=== PATIENT | male | born 1960 | race Caucasian/White ===

== ENCOUNTER 2024-06-22 03:04 | Emergency (ER) | payer OTHER, SELFPAY ==
[2024-06-22 03:05] VITALS: BP 167/105; PULSE 61; RESP 14; TEMP 36.2; O2SAT 97; BMI 35.2
--- NOTE | 2024-06-22 03:19 | CT_ITS ---
INDICATION: flank pain EXAMINATION: CT ABDOMEN AND PELVIS WITHOUT CONTRAST - CT Abdomen And Pelvis W/O Contrast Injection TECHNIQUE: Helically acquired images were obtained of the abdomen and pelvis without oral or IV contrast. A radiation dose optimization technique was used for this scan. IV Contrast dosage and agent: None. Oral contrast: None. COMPARISON: None. FINDINGS: LOWER CHEST: Lung bases are clear. No cardiomegaly or pericardial effusion. LIVER: Homogeneous. No focal mass. GALLBLADDER AND BILIARY TREE: No calcified gallstones. No gallbladder distension or wall edema. No intra- or extrahepatic biliary ductal dilation. PANCREAS: No focal cystic or solid mass. SPLEEN: Normal size without focal cystic or solid mass. ADRENAL GLANDS: No nodules. KIDNEYS AND URETERS: 2 mm right ureterovesical junction stone, axial image 140, with minimal hydronephrosis and moderate right perinephric inflammation. Additional punctate renal stones are present bilaterally. No significant left perinephric inflammation. Normal left ureter. Normal bilateral renal cortical appearance. PERITONEUM: No ascites or free air. No other fluid collection. BOWEL: Small hiatal hernia. No acute gastric finding. No small bowel distention or focal wall thickening. Normal appendix. Scattered moderate colonic stool. Scattered colonic diverticulosis without evidence of diverticulitis. . LYMPH NODES: No enlarged mesenteric or retroperitoneal lymph nodes. VESSELS: Aorta is non-dilated. URINARY BLADDER: Unremarkable. REPRODUCTIVE ORGANS: Large prostate 7 cm transverse. ABDOMINAL WALL: No discrete abdominal or pelvic wall hernia. BONES: No lytic or blastic abnormality. L4-5 facet arthropathy with degenerative grade 1 anterolisthesis and mild associated neural foraminal narrowing. L5-S1 small posterior disc protrusion with mild spinal canal and neural foraminal narrowing. CT/Abdomen/Pelvis without Cont IMPRESSION: 2 mm right ureterovesical junction stone with mild hydronephrosis and perinephric inflammation. Additional bilateral punctate nonobstructive stones. Moderate colonic stool. Large prostate. Electronically Signed: Anirudh Thomason MD at 5:01 EDT ,
--- NOTE | 2024-06-22 03:25 | EX.ED.DYSGE1 ---
HPI History of Present Illness Chief Complaint: Flank Pain Informant: patient and spouse/S.O. Narrative Narrative: Patient is a 64-year-old male with no reported significant past medical history. He states he went to bed normally last night and then awoke around 1 in the morning with a right-sided abdominal/flank pain. Patient states that there has been no recent trauma or excessive activity. He denies any dysuria. He states that the pain does not seem to improve or worsen if he changes position. He reports that he has been trying [id number] medications for the last few hours without any symptom improvement and secondary to this comes in for evaluation. [facility] Medical History no medical history Home Medications ?Medication ?Instructions ?Recorded ?Last Taken ?Type NK 06/22/24 Unknown History ketorolac 10 mg tablet 10 mg PO 4X/DAY PRN pain 5 days 06/22/24 Unknown Rx #20 tabs ondansetron 4 mg disintegrating 4 mg PO TID PRN nausea and 06/22/24 Unknown Rx tablet vomiting #21 tabs oxycodone-acetaminophen 5 mg-325 1 tab PO Q6H PRN pain 3 days #12 06/22/24 Unknown Rx mg tablet (Percocet) tabs tamsulosin 0.4 mg capsule (Flomax) 0.4 mg PO DAILY 14 days #14 caps 06/22/24 Unknown Rx Allergy/AdvReac Type Severity Reaction Status Date / Time No Known Allergies Allergy Verified 06/22/24 03:10 Social History Smoking Status: Never smoker [facility] ED Constitutional Constitutional ED: Denies chills or fever(s) ENT ENT ED: Denies sore throat Cardiovascular Cardiovascular: Denies chest pain Respiratory/Chest Respiratory/Chest: Denies cough or dyspnea Gastrointestinal Gastrointestinal: Reports abdominal pain; Denies diarrhea, nausea or vomiting Genitourinary Genitourinary ED: Denies dysuria, hematuria or urinary frequency Musculoskeletal Musculoskeletal: Reports back pain and other Details: Positive right-sided flank pain ; Denies myalgias Integumentary Denies Abrasions or rash Neurologic Neurologic: Denies headache(s) Hematologic/Lymphatic Hematologic/Lymphatic: Denies easy bleeding or easy bruising EXAM Physical Exam Const Vital Signs: 06/22/24 03:05 06/22/24 03:05 06/22/24 04:49 Temperature 97.2 F L Temperature Source Temporal Pulse Rate 61 59 L Respiratory Rate 14 16 Blood Pressure 167/105 H 139/87 H Blood Pressure Mean 125 104 Pulse Ox 97 97 Oxygen Delivery Method Room Air Room Air Positive well nourished and well developed General Appearance ED: well developed; Negative for pallor HEENT HEENT Narrative: Normocephalic atraumatic Eyes PERRL and EOMs intact bilaterally General Eye ED: Negative for scleral icterus Neck supple Chest Wall palpation of chest normal Resp normal respiratory effort and clear to auscultation bilaterally Cardio regular rate and regular rhythm Rate: other Other Details: Heart is regular rate and rhythm without murmurs rubs or gallops Radial and carotid pulses equal and symmetric GI non-distended and no masses GI Narrative: Abdomen is soft and nondistended with normal active bowel sounds. Patient has pain on palpation along the right upper mid and lower abdomen without voluntary guarding or rigidity. No pulsatile mass or fluid wave. Negative Pastor sign Auscultation: normoactive bowel sounds Palpation: soft Back/Spine Back/Spine Narrative: Positive right CVA pain noted Extremity normal to inspection Neuro oriented x3, CN's II-XII intact bilaterally and no sensory deficits noted Sensorium / Orientation: alert Motor Exam: strength 5/5 throughout Psych mental status grossly normal Skin no rashes or lesions noted and no wounds Skin Narrative: No overlying soft tissue skin changes to suggest trauma or infection General Skin Exam: Negative for jaundice or pallor MDM MDM MDM Narrative Medical decision making narrative: Patient arrived to ER hypertensive otherwise with stable vitals. He reported sudden onset of right-sided flank pain wrapping around to the abdomen and denied any recent trauma or excessive activity. Differential diagnosis is for UTI versus pyelonephritis versus kidney stone versus biliary colic or acute cholecystitis or atypical pancreatitis. Basic labs were obtained as kidney stone is the most likely cause of his symptoms based on his history and exam. Patient did not have acute kidney injury or urosepsis finding. CT scan confirmed a 2 mm stone on the right in the distal UVJ region which is consistent with the symptoms and exam. After IV fluids and Toradol patient had resolution of pain and his blood pressure improved. Therefore at this time with resolution of pain and workup showing a kidney stone but without signs of acute kidney injury or urosepsis there is no need to keep him in the hospital and he is otherwise safe for discharge with symptomatic care History & Record Review Discussion w/independent historian: Patient and Significant other Lab Data Attestation: I reviewed the patient's lab results. Labs: Laboratory Results - last 24 hr 06/22/24 06/22/24 03:16 03:30 WBC 4.7 RBC 5.03 Hgb 15.2 Hct 45.0 MCV 89.5 MCH 30.2 MCHC 33.8 RDW Std Deviation 39.8 RDW Coeff of Leslie 12.2 Plt Count 218 MPV 8.8 Immature Gran % (Auto) 0.400 Neut % (Auto) 56.7 Lymph % (Auto) 29.2 Leon % (Auto) 9.9 Eos % (Auto) 3.2 Baso % (Auto) 0.6 Absolute Neuts (auto) 2.6 Absolute Lymphs (auto) 1.36 Nucleated RBC % 0 Sodium 140 Potassium 4.1 Chloride 110 H Carbon Dioxide 25.0 Anion Gap 5 BUN 21 H Creatinine 1.18 Estim Creat Clear Calc 83.49 Est GFR (MDRD) Af Amer 80 Est GFR (MDRD) Non-Af 67 BUN/Creatinine Ratio 17.8 Glucose 127 H Calcium 8.9 Urine Color Yellow Urine Clarity Clear Urine pH 6.0 Ur Specific [place] 1.020 Urine Protein 15 H Urine Glucose (UA) 50 H Urine Ketones Negative Urine Occult Blood Negative Urine Nitrite Negative Urine Bilirubin Negative Urine Urobilinogen Normal Ur Leukocyte Esterase Negative Urine RBC 0 SEEN Urine WBC 0 SEEN Ur Squamous Epith Cells 0-5 SEEN Urine Bacteria 0 SEEN Urine Mucus 0 SEEN Radiography Diagnostic Testing: Clinical Impression(s) from Imaging Studies Abdomen/Pelvis CT 06/22/24 03:19 IMPRESSION: 2 mm right ureterovesical junction stone with mild hydronephrosis and perinephric inflammation. Additional bilateral punctate nonobstructive stones. Moderate colonic stool. Large prostate. Electronically Signed: Anirudh Thomason MD at 5:01 EDT , Discharge Plan Triage Chief Complaint: Flank Pain ED Provider: Rashaad Montalvo Dx/Rx/DC Orders Clinical Impression: Kidney stone, Renal colic Instructions: Understanding Kidney Stones, ED Kidney Stone with Pain Prescriptions: New ketorolac 10 mg tablet 10 mg PO 4X/DAY PRN (Reason: pain) 5 Days Qty: 20 0RF oxycodone-acetaminophen [Percocet] 5-325 mg tablet 1 tab PO Q6H PRN (Reason: pain) 3 Days Qty: 12 0RF ondansetron 4 mg tablet,disintegrating 4 mg PO TID PRN (Reason: nausea and vomiting) Qty: 21 0RF tamsulosin [Flomax] 0.4 mg capsule 0.4 mg PO DAILY 14 Days Qty: 14 0RF No Action NK Primary Care Provider: Care Physician,No Primary Referrals: Emigdio Pires MD [Med Staff - Active Staff] - NOT,DEFINED [Non-Staff] - Activity Restrictions/Additional Instructions: Please keep yourself well-hydrated and stay active to help pass your kidney stone. Return to the ER if you develop a fever over 100.4 or your pain is not controlled with the prescribed medications. Otherwise you may follow-up with urology to discuss further treatment options if you do not spontaneously passed the stone Print Language: Tunisian Disposition Disposition: Home, Self Care
[2024-06-22] MEDS: Ketorolac 30 MG/ML Syringe IV (03:28)
[2024-06-22] MEDS: 0.9% Normal Saline (1000mL) 1,000 ML 999 ML IV (03:28)
[2024-06-22 03:35] LABS: Absolute Lymphocyte Count 1.36 X10^3/uL (0.83-4.51); Absolute Neutrophil Count 2.6 X10^3/uL (2.0-7.7); Basophil# 0.03 X10^3/uL; Basophil% 0.6 % (0-1); Eosinophil# 0.15 X10^3/uL; Eosinophils% 3.2 % (0-5); Hemoglobin 15.2 g/dL (13.0-16.5); Lymphocyte # 1.36 X10^3/ul (0.83-4.51); Lymphocyte % 29.2 % (19-41); Mean Corp Hgb Conc 33.8 g/dL (32-36); Mean Corpuscular Hgb 30.2 pg (27.0-32.0); Mean Corpuscular Volume 89.5 fL (80-94); Mean Platelet Vol. 8.8 fl (6.2-12.0); Monocyte# 0.46 X10^3/uL; Monocyte% 9.9 % (0-10); NRBC Flagged by Analyzer 0 % (0-5); Neutrophil # 2.64 X10^3/uL (2.7-7.7); Neutrophil % 56.7 % (47-70); Platelet Count 218 K/mm3 (150-450); RBC Distribution Width CV 12.2 % (11.6-14.6); RBC Distribution Width SD 39.8 fl (35.1-43.9); Red Blood Count 5.03 M/mm3 (4.6-6.2); White Blood Count 4.7 K/mm3 (4.4-11.0)
[2024-06-22 03:41] LABS: Bacteria 0 SEEN /hpf (None Seen); Mucous, Urine 0 SEEN /hpf (<or=2+); Red Blood Cells-Urine 0 SEEN /hpf (0-5); White Blood Cells 0 SEEN /hpf (0-5)
[2024-06-22 03:43] LABS: Glucose, Dipstick 50 mg/dl (Normal); Ketone-Dipstick Negative (Negative); Leukocyte Esterase-Dipstick Negative /ul (Negative); Nitrite-Dipstick Negative (Negative); Occult Blood-Urine Negative /ul (Negative); Protein-Dipstick 15 mg/dl (Negative); Urine Bilirubin Dipstick Negative (Negative); Urine Urobilinogen Normal (Normal)
[2024-06-22 03:49] LABS: Color, Urine Yellow (Yellow); Squamous Epithelial Cells - UA 0-5 SEEN /hpf (0-5); Urine Clarity Clear (Clear)
[2024-06-22 03:50] LABS: Anion Gap 5 (5-15); BUN 21 mg/dL (7-18); BUN/Creat Ratio 17.8 RATIO (10-20); Calcium,Total 8.9 mg/dL (8.5-10.1); Chloride 110 mmol/L (98-107); Creatinine, Serum 1.18 mg/dL (0.70-1.30); EST Glomerular Filtration Rate 67 mL/min (>60); Est Glom Filt Rate - Afr Amer 80 mL/min (>60); Estimated Creatinine Clearance 83.49 ml/min; Glucose 127 mg/dL (74-106); Potassium 4.1 mmol/L (3.5-5.1); Sodium Level 140 mmol/L (136-145)
[2024-06-22 04:49] VITALS: BP 139/87; PULSE 59; RESP 16; O2SAT 97
[2024-06-22 05:35] VITALS: BP 140/88; PULSE 58; RESP 16; TEMP 36.6; O2SAT 98
== END 2024-06-22 06:24 | disposition home or self-care (01) ==
PROVIDERS: Emergency Provider Emergency Medicine; Visit Provider Emergency Medicine
DX: N20.0 Calculus of kidney (principal)
CPT/HCPCS: 74176; 80048; 81001; 85025; 96361; 96374; 96376; 99284; J7030; A4216